=== PATIENT | female | born 1950 | race Caucasian/White ===

== ENCOUNTER 2016-07-13 11:56 | Outpatient (CLI) | payer OTHER ==
[2016-07-13] MEDS ORDERED: FLUMAZENIL 0.5 MG/5 ML MDV IVP ONE (13:25)
[2016-07-13] MEDS ORDERED: fentaNYL 100 MCG/2 ML INJ ONE (13:26)
[2016-07-13] MEDS ORDERED: MIDAZOLAM 2 MG/2 ML VIAL ONE (13:26)
[2016-07-13] MEDS ORDERED: NALOXONE HCL 0.4 MG/ML INJ ONE (13:26)
--- NOTE | 2016-07-15 15:16 | MR ---
MRI Cervical Spine, Without Contrast July 13, 2016 Indication: Left-sided neck pain. Technique: Sagittal T2, T1, and STIR-weighted imaging through the cervical spine. Stacked axial T2-we ighted imaging was obtained from the foramen magnum through the superior endplate of T1. Patient rece ived conscious sedation due to severe claustrophobia. Comment: The study was completed on July 13 and submitted to the PACS for review on July 15. Intravenous Conscious Sedation: After witnessed informed consent was obtained. Conscious sedation was performed with the uneventful intravenous administration of Versed 2 mg and fentanyl 100 mcg under t he supervision of the radiology nurse and consenting radiologist. No immediate complications. Start t warren: 1330. End time: 1410. Comparison: Cervical spine series dated May 06, 2016. Findings: The cervical spine is anatomically aligned. Bone marrow signal is normal except for diskoge idris Modic changes at the C4-C5 level. No fracture or bone marrow replacing lesion. Paraspinal soft ti ssues are normal. The cervicooccipital junction and posterior fossa are normal. The cervical spinal c ord is minimally compressed at C4-C5, C5-C6, C6-C7, and C7-T1 due to broad-based disk bulges. No cord edema or atrophy. C2-C3: Widely patent central canal and neural foramina. Minimal disk desiccation. C3-C4: Minimal left neural foraminal narrowing due to facet hypertrophy. Central canal and right neur al foramen are widely patent. C4-C5: A broad-based disk bulge combined with uncovertebral spurs and facet hypertrophy results in mo derate central canal narrowing and moderate severe bilateral neural foraminal narrowing worse left th an right. The central canal measures 4 to 5 mm AP. The spinal cord is minimally compressed with limit ed cerebrospinal fluid along the dorsal and ventral aspects of the cord. C5-C6: A left posterolateral disk herniation (protrusion) results in moderate central canal narrowing and mild compression of the left ventral aspect of the cord. The central canal measures 5 to 6 mm AP . The disk protrusion is best demonstrated on images 55 through 61 of the axial T2-weighted imaging. The disk bulge combined with uncovertebral and facet spurs results in severe right and moderate left neural foraminal narrowing. C6-C7: Thickening of the posterior longitudinal ligament combined with a left paramedian subligamento us disk herniation (protrusion) results in moderate severe central canal narrowing and moderate mass effect upon the left ventral aspect of the cord. Spinal canal measures 4 mm AP on the left. Uncoverte bral and facet spurs result in moderate severe bilateral neural foraminal stenosis. C7-T1: A right paramedian disk herniation (protrusion) results in mild to moderate central canal narr owing and minimal mass effect upon the right ventrolateral aspect of the spinal cord. The spinal mono l measures 6 mm AP. Uncovertebral and facet spurs result in moderate right and mild left neural ricky inal narrowing. Impression: 1. Moderate severe central canal narrowing at C4-C5, C5-C6, C6-C7, and C7-T1 levels due to broad-base d disk bulge at C4-C5 and disk herniations at the C5-C6, C6-C7 and C7-T1 levels. 2. Mild cord compression at the C4-C5, C5-C6, C6-C7, and C7-T1 levels. No cord edema or gliosis. 3. Multilevel moderate severe bilateral neural foraminal stenosis.
== END 2016-07-13 15:00 | disposition home or self-care (01) ==
LOC: FIMAGING 11:56
PROVIDERS: ATTEND Family Medicine
DX: M50.321 Other cervical disc degeneration at C4-C5 level (principal); M50.322 Other cervical disc degeneration at C5-C6 level; M50.323 Other cervical disc degeneration at C6-C7 level; M50.33 Other cervical disc degeneration, cervicothoracic region; M48.02 Spinal stenosis, cervical region; F40.240 Claustrophobia
CPT/HCPCS: 72141; 99144; 99145; J2250; J3010; J2310

== ENCOUNTER → 2016-09-12 | Outpatient (CLI) | payer OTHER | LOC: BRMIMAGING 13:39 | PROVIDERS: ATTEND Family Medicine | DX: Z12.31 Encounter for screening mammogram for malignant neoplasm of breast (principal); Z13.820 Encounter for screening for osteoporosis; M85.80 Other specified disorders of bone density and structure, unspecified site | CPT/HCPCS: G0202 ==

== ENCOUNTER → 2017-11-01 | Outpatient (CLI) | payer OTHER | LOC: BRMIMAGING 08:23 | PROVIDERS: ATTEND Family Medicine | DX: Z12.31 Encounter for screening mammogram for malignant neoplasm of breast (principal) ==

== ENCOUNTER → 2018-12-13 | Outpatient (CLI) | payer OTHER | LOC: CIMAGING 10:34 ==